=== PATIENT | male | born 1990 | race Two or more races ===

== ENCOUNTER 2023-04-29 14:54 | Emergency (ER) | payer MEDICAID ==
[~2023-04-29] VITALS: Ht 180.3 cm; Wt 72.7 kg
[2023-04-29 15:00] VITALS: TEMP 98.2
[2023-04-29] MEDS ORDERED: IBUPROFEN 600 MG TABLET PO ONE (16:30)
[2023-04-29] MEDS ORDERED: BACLOFEN 10 MG TABLET PO ONE (16:30)
[2023-04-29] MEDS ORDERED: LIDOCAINE 5% TRANSDERMAL PATCH TD ONE (16:30)
[2023-04-29] MEDS ORDERED: IBUP-1492 PO (17:23)
[2023-04-29] MEDS ORDERED: BACL10TA PO (17:24)
[2023-04-29 17:40] VITALS: BP 121/69; PULSE 66; RESP 18
== END 2023-04-29 17:43 | disposition home or self-care (01) ==
LOC: EMS 14:54
DX: M54.50 Low back pain, unspecified (principal)
CPT/HCPCS: 99284; Z7502; Z7610